=== PATIENT | female | born 1955 | race Caucasian/White ===

== ENCOUNTER → 2017-01-02 | Outpatient (REF) | payer BC ==
[2017-01-02 11:42] LABS: MEAN CORPUSCULAR HEMOGLOBIN 32.9 pg (27.0-33.0); MEAN CORPUSCULAR HGB CONC 33.8 g/dl (32.0-36.5); MEAN CORPUSCULAR VOLUME 97.4 fl (80.0-96.0); RED CELL DISTRIBUTION WIDTH 12.9 % (11.5-14.5); WHITE BLOOD COUNT 5.3 K/mm3 (4.0-10.0)
[2017-01-02 12:39] LABS: ALBUMIN 3.8 GM/DL (3.2-5.2); ALBUMIN/GLOBULIN RATIO 1.52 (1.00-1.93); ALKALINE PHOSPHATASE 49 U/L (45-117); ALT/SGPT 22 U/L (12-78); ANION GAP 7 MEQ/L (8-16); AST/SGOT 19 U/L (15-37); BILIRUBIN,TOTAL 0.4 MG/DL (0.2-1.0); BLOOD UREA NITROGEN 12 MG/DL (7-18); CALCIUM LEVEL 8.6 MG/DL (8.5-10.1); CARBON DIOXIDE LEVEL 30 MEQ/L (21-32); CHLORIDE LEVEL 104 MEQ/L (98-107); CHOLESTEROL LEVEL 193 MG/DL (<200); CREATININE FOR GFR 0.67 MG/DL (0.55-1.02); FERRITIN 22 NG/ML (8-252); GLOMERULAR FILTRATION RATE > 60.0 (>51); GLUCOSE, FASTING 79 MG/DL (70-105); POTASSIUM SERUM 4.2 MEQ/L (3.5-5.1); SODIUM LEVEL 141 MEQ/L (136-145); TOTAL PROTEIN 6.3 GM/DL (6.4-8.2); TRIGLYCERIDES LEVEL 57 MG/DL (<150)
== END ==
LOC: M SFHCCLAY 09:05
PROVIDERS: ATTEND Family Medicine
DX: E78.00 Pure hypercholesterolemia, unspecified (principal); E83.119 Hemochromatosis, unspecified

== ENCOUNTER → 2018-01-10 | Outpatient (REF) | payer BC ==
[2018-01-10 11:40] LABS: HEMATOCRIT 40.5 % (36.0-47.0); HEMOGLOBIN 13.9 g/dl (12.0-16.0); MEAN CORPUSCULAR HEMOGLOBIN 32.9 pg (27.0-33.0); MEAN CORPUSCULAR HGB CONC 34.3 g/dl (32.0-36.5); MEAN CORPUSCULAR VOLUME 95.7 fl (80.0-96.0); PLATELET COUNT, AUTOMATED 285 10^3/uL (150-450); RED BLOOD COUNT 4.23 10^6/uL (4.00-5.40); RED CELL DISTRIBUTION WIDTH 11.7 % (11.5-14.5); WHITE BLOOD COUNT 4.7 10^3/uL (4.0-10.0)
[2018-01-10 12:08] LABS: ALBUMIN 3.6 GM/DL (3.2-5.2); ALBUMIN/GLOBULIN RATIO 1.24 (1.00-1.93); ALKALINE PHOSPHATASE 48 U/L (45-117); ALT/SGPT 23 U/L (12-78); ANION GAP 3 MEQ/L (8-16); AST/SGOT 14 U/L (7-37); BILIRUBIN,TOTAL 0.4 MG/DL (0.2-1.0); BLOOD UREA NITROGEN 12 MG/DL (7-18); CALCIUM LEVEL 7.9 MG/DL (8.8-10.2); CARBON DIOXIDE LEVEL 31 MEQ/L (21-32); CHLORIDE LEVEL 108 MEQ/L (98-107); CHOLESTEROL LEVEL 190 MG/DL (<200); CHOLESTEROL RISK RATIO 2.835 (<5); CREATININE FOR GFR 0.73 MG/DL (0.55-1.30); FERRITIN 67 NG/ML (8-252); GLOMERULAR FILTRATION RATE > 60.0 (>45); GLUCOSE, FASTING 82 MG/DL (70-100); HDL CHOLESTEROL 67 MG/DL (>40); IRON (FE) 125 UG/DL (50-170); NON-HDL-C 123 MG/DL; POTASSIUM SERUM 4.5 MEQ/L (3.5-5.1); SODIUM LEVEL 142 MEQ/L (136-145); TOTAL PROTEIN 6.5 GM/DL (6.4-8.2); TRIGLYCERIDES LEVEL 65 MG/DL (<150)
== END ==
LOC: M SFHCCLAY 08:30
DX: E83.119 Hemochromatosis, unspecified (principal); E78.00 Pure hypercholesterolemia, unspecified
CPT/HCPCS: 83540

== ENCOUNTER → 2019-01-08 | Outpatient (REF) | payer BC ==
[2019-01-08 16:43] LABS: HEMATOCRIT 37.6 % (36.0-47.0); HEMOGLOBIN 12.9 g/dl (12.0-15.5); MEAN CORPUSCULAR HEMOGLOBIN 32.5 pg (27.0-33.0); MEAN CORPUSCULAR HGB CONC 34.3 g/dl (32.0-36.5); MEAN CORPUSCULAR VOLUME 94.7 fl (80.0-96.0); PLATELET COUNT, AUTOMATED 284 10^3/uL (150-450); RED BLOOD COUNT 3.97 10^6/uL (4.00-5.40)
[2019-01-08 16:47] LABS: ALBUMIN 3.8 GM/DL (3.2-5.2); ALT/SGPT 25 U/L (12-78); BILIRUBIN,TOTAL 0.4 MG/DL (0.2-1.0); BLOOD UREA NITROGEN 10 MG/DL (7-18); CALCIUM LEVEL 8.4 MG/DL (8.8-10.2); CARBON DIOXIDE LEVEL 28 MEQ/L (21-32); CHLORIDE LEVEL 105 MEQ/L (98-107); CHOLESTEROL LEVEL 197 MG/DL (<200); CHOLESTEROL RISK RATIO 2.373 (<5); CREATININE FOR GFR 0.74 MG/DL (0.55-1.30); FERRITIN 10 NG/ML (8-252); GLOMERULAR FILTRATION RATE > 60.0 (>45); GLUCOSE, FASTING 79 MG/DL (70-100); HDL CHOLESTEROL 83 MG/DL (>40); IRON (FE) 85 UG/DL (50-170); LDL CHOLESTEROL 105 MG/DL (<100); NON-HDL-C 114 MG/DL; POTASSIUM SERUM 4.2 MEQ/L (3.5-5.1); SODIUM LEVEL 141 MEQ/L (136-145); TOTAL PROTEIN 6.5 GM/DL (6.4-8.2); TRIGLYCERIDES LEVEL 45 MG/DL (<150)
== END ==
LOC: M SFHCCLAY 09:38
PROVIDERS: ATTEND Family Medicine
DX: E83.119 Hemochromatosis, unspecified (principal); E78.00 Pure hypercholesterolemia, unspecified

== ENCOUNTER → 2019-05-20 | Outpatient (REF) | payer BC | LOC: M SFHCPLAZ 18:27 | PROVIDERS: ATTEND Dermatology | DX: D23.9 Other benign neoplasm of skin, unspecified (principal); L85.9 Epidermal thickening, unspecified ==

== ENCOUNTER → 2020-01-20 | Outpatient (REF) | payer BC ==
[2020-01-20 12:40] LABS: ALBUMIN 3.7 GM/DL (3.2-5.2); ALT/SGPT 26 U/L (12-78); BILIRUBIN,TOTAL 0.5 MG/DL (0.2-1.0); BLOOD UREA NITROGEN 14 MG/DL (7-18); CALCIUM LEVEL 8.4 MG/DL (8.8-10.2); CARBON DIOXIDE LEVEL 31 MEQ/L (21-32); CHLORIDE LEVEL 105 MEQ/L (98-107); CHOLESTEROL LEVEL 200 MG/DL (<200); CHOLESTEROL RISK RATIO 2.409 (<5); CREATININE FOR GFR 0.77 MG/DL (0.55-1.30); FERRITIN 18 NG/ML (8-252); GLOMERULAR FILTRATION RATE > 60.0 (>45); GLUCOSE, FASTING 78 MG/DL (70-100); HDL CHOLESTEROL 83 MG/DL (>40); IRON (FE) 147 UG/DL (50-170); LDL CHOLESTEROL 103 MG/DL (<100); NON-HDL-C 117 MG/DL; PERCENT SATURATION 57.6 % (13.2-45.0); POTASSIUM SERUM 4.2 MEQ/L (3.5-5.1); SODIUM LEVEL 139 MEQ/L (136-145); TOTAL 25(OH) VITAMIN D 26.2 NG/ML (30.0-100.0); TOTAL IRON BINDING CAPACITY 255 UG/DL (250-450); TOTAL PROTEIN 6.6 GM/DL (6.4-8.2); TRIGLYCERIDES LEVEL 68 MG/DL (<150)
== END ==
LOC: M SFHCCLAY 09:05
PROVIDERS: ATTEND Family Medicine
DX: Z00.00 Encounter for general adult medical examination without abnormal findings (principal); E83.119 Hemochromatosis, unspecified; E78.00 Pure hypercholesterolemia, unspecified

== ENCOUNTER → 2020-05-25 | Outpatient (REF) | payer BC | LOC: M LAB REF 09:27 | PROVIDERS: ATTEND Dermatology | DX: L57.0 Actinic keratosis (principal) ==

== ENCOUNTER → 2021-01-17 | Outpatient (REF) | payer BC ==
[2021-01-17 11:34] LABS: HEMATOCRIT 39.1 % (36.0-47.0); HEMOGLOBIN 13.3 g/dl (12.0-15.5); MEAN CORPUSCULAR HEMOGLOBIN 33.7 pg (27.0-33.0); PLATELET COUNT, AUTOMATED 323 10^3/uL (150-450); RED BLOOD COUNT 3.95 10^6/uL (4.00-5.40); WHITE BLOOD COUNT 5.5 10^3/uL (4.0-10.0)
[2021-01-17 13:23] LABS: ALBUMIN 4.1 GM/DL (3.2-5.2); ALT/SGPT 19 U/L (12-78); BILIRUBIN,TOTAL 0.4 MG/DL (0.2-1.0); BLOOD UREA NITROGEN 13 MG/DL (7-18); CALCIUM LEVEL 8.7 MG/DL (8.8-10.2); CARBON DIOXIDE LEVEL 32 MEQ/L (21-32); CHLORIDE LEVEL 105 MEQ/L (98-107); CHOLESTEROL LEVEL 244 MG/DL (<200); CHOLESTEROL RISK RATIO 2.259 (<5); CREATININE FOR GFR 0.81 MG/DL (0.55-1.30); FERRITIN 8 NG/ML (8-252); GLOMERULAR FILTRATION RATE > 60.0 (>45); GLUCOSE, FASTING 84 MG/DL (70-100); HDL CHOLESTEROL 108 MG/DL (>40); IRON (FE) 66 UG/DL (50-170); LDL CHOLESTEROL 123 MG/DL (<100); NON-HDL-C 136 MG/DL; PERCENT SATURATION 21.7 % (13.2-45.0); POTASSIUM SERUM 4.3 MEQ/L (3.5-5.1); SODIUM LEVEL 140 MEQ/L (136-145); TOTAL IRON BINDING CAPACITY 304 UG/DL (250-450); TRIGLYCERIDES LEVEL 66 MG/DL (<150)
== END ==
LOC: M SFHCCLAY 09:35
PROVIDERS: ATTEND Family Medicine
DX: E83.119 Hemochromatosis, unspecified (principal); E78.00 Pure hypercholesterolemia, unspecified; Z00.00 Encounter for general adult medical examination without abnormal findings

== ENCOUNTER → 2022-01-23 | Outpatient (REF) | payer BC ==
[2022-01-23 16:06] LABS: HEMATOCRIT 38.9 % (36.0-47.0); HEMOGLOBIN 13.5 g/dl (12.0-15.5); MEAN CORPUSCULAR HGB CONC 34.7 g/dl (32.0-36.5); MEAN CORPUSCULAR VOLUME 95.1 fl (80.0-96.0); PLATELET COUNT, AUTOMATED 314 10^3/uL (150-450); RED BLOOD COUNT 4.09 10^6/uL (4.00-5.40); WHITE BLOOD COUNT 5.4 10^3/uL (4.0-10.0)
[2022-01-23 16:29] LABS: ALBUMIN 4.2 GM/DL (3.2-5.2); ALT/SGPT 25 U/L (12-78); BILIRUBIN,TOTAL 0.5 MG/DL (0.2-1.0); BLOOD UREA NITROGEN 13 MG/DL (7-18); CALCIUM LEVEL 9.1 MG/DL (8.8-10.2); CARBON DIOXIDE LEVEL 31 MEQ/L (21-32); CHLORIDE LEVEL 107 MEQ/L (98-107); CHOLESTEROL LEVEL 248 MG/DL (<200); CHOLESTEROL RISK RATIO 2.214 (<5); CREATININE FOR GFR 0.83 MG/DL (0.55-1.30); FERRITIN 9 NG/ML (8-252); GLOMERULAR FILTRATION RATE > 60.0 (>45); GLUCOSE, FASTING 93 MG/DL (70-100); HDL CHOLESTEROL 112 MG/DL (>40); IRON (FE) 63 UG/DL (50-170); LDL CHOLESTEROL 123 MG/DL (<100); NON-HDL-C 136 MG/DL; PERCENT SATURATION 21.6 % (13.2-45.0); POTASSIUM SERUM 4.3 MEQ/L (3.5-5.1); SODIUM LEVEL 141 MEQ/L (136-145); TOTAL IRON BINDING CAPACITY 292 UG/DL (250-450); TOTAL PROTEIN 7.1 GM/DL (6.4-8.2); TRIGLYCERIDES LEVEL 63 MG/DL (<150)
== END ==
LOC: M SFHCCLAY 11:18
PROVIDERS: ATTEND Family Medicine
DX: E83.119 Hemochromatosis, unspecified (principal); E78.00 Pure hypercholesterolemia, unspecified

== ENCOUNTER → 2023-03-27 | Outpatient (REF) | payer MEDICARE ==
[2023-03-27 12:00] LABS: HEMATOCRIT 42.2 % (36.0-47.0); HEMOGLOBIN 14.1 g/dl (12.0-15.5); MEAN CORPUSCULAR HEMOGLOBIN 32.2 pg (27.0-33.0); MEAN CORPUSCULAR HGB CONC 33.4 g/dl (32.0-36.5); MEAN CORPUSCULAR VOLUME 96.3 fl (80.0-96.0); PLATELET COUNT, AUTOMATED 270 10^3/uL (150-450); RED BLOOD COUNT 4.38 10^6/uL (4.00-5.40); WHITE BLOOD COUNT 6.1 10^3/uL (4.0-10.0)
[2023-03-27 12:24] LABS: IRON (FE) 111 UG/DL (50-170); PERCENT SATURATION 41.3 % (13.2-45.0); TOTAL IRON BINDING CAPACITY 269 UG/DL (250-425)
[2023-03-27 12:25] LABS: ALBUMIN 3.9 G/DL (3.2-5.2); ALKALINE PHOSPHATASE 48 U/L (46-116); ALT/SGPT 23 U/L (7.0-40); AST/SGOT 24 U/L (<34); BILIRUBIN,TOTAL 0.7 MG/DL (0.3-1.2); BLOOD UREA NITROGEN 13 MG/DL (9-23); CALCIUM LEVEL 8.9 MG/DL (8.3-10.6); CARBON DIOXIDE LEVEL 31 MMOL/L (20-31); CHLORIDE LEVEL 106 MMOL/L (98-107); CHOLESTEROL LEVEL 246 MG/DL (<200); CHOLESTEROL RISK RATIO 2.41 (<5); CREATININE FOR GFR 0.75 MG/DL (0.55-1.30); GLOMERULAR FILTRATION RATE > 60.0 (>45); GLUCOSE, FASTING 85 MG/DL (74-106); LDL CHOLESTEROL 131.8 MG/DL (<100); POTASSIUM SERUM 4.3 MMOL/L (3.5-5.1); SODIUM LEVEL 141 MMOL/L (136-145); TOTAL PROTEIN 6.6 G/DL (5.7-8.2); TRIGLYCERIDES LEVEL 61 MG/DL (<150)
[2023-03-27 12:26] LABS: FERRITIN 11.8 NG/ML (7.3-270.7)
== END ==
LOC: M SFHCCLAY 09:11
PROVIDERS: ATTEND Family Medicine
DX: E83.119 Hemochromatosis, unspecified (principal); E78.00 Pure hypercholesterolemia, unspecified

== ENCOUNTER → 2024-03-31 | Outpatient (REF) | payer MEDICARE ==
[2024-03-31 18:04] LABS: IRON (FE) 79 UG/DL (50-170); PERCENT SATURATION 31.1 % (13.2-45.0); TOTAL IRON BINDING CAPACITY 254 UG/DL (250-425)
[2024-03-31 18:05] LABS: ALBUMIN 3.9 G/DL (3.2-5.2); ALKALINE PHOSPHATASE 47 U/L (46-116); ALT/SGPT 25 U/L (7.0-40); AST/SGOT 18 U/L (<34); BILIRUBIN,TOTAL 0.6 MG/DL (0.3-1.2); BLOOD UREA NITROGEN 15 MG/DL (9-23); CALCIUM LEVEL 8.8 MG/DL (8.3-10.6); CARBON DIOXIDE LEVEL 28 MMOL/L (20-31); CHLORIDE LEVEL 105 MMOL/L (98-107); CHOLESTEROL LEVEL 254 MG/DL (<200); CHOLESTEROL RISK RATIO 2.43 (<5); CREATININE FOR GFR 0.78 MG/DL (0.55-1.30); GLOMERULAR FILTRATION RATE > 60.0 (>45); GLUCOSE, FASTING 93 MG/DL (74-106); HDL CHOLESTEROL 104.1 MG/DL (>40); HEMOGLOBIN 12.9 g/dl (12.0-15.5); LDL CHOLESTEROL 138.1 MG/DL (<100); MEAN CORPUSCULAR HEMOGLOBIN 31.4 pg (27.0-33.0); MEAN CORPUSCULAR HGB CONC 33.9 g/dl (32.0-36.5); MEAN CORPUSCULAR VOLUME 92.5 fl (80.0-96.0); NON-HDL-C 149.9 MG/DL; PLATELET COUNT, AUTOMATED 277 10^3/uL (150-450); POTASSIUM SERUM 4.3 MMOL/L (3.5-5.1); RED BLOOD COUNT 4.11 10^6/uL (4.00-5.40); SODIUM LEVEL 139 MMOL/L (136-145); TOTAL PROTEIN 6.4 G/DL (5.7-8.2); TRIGLYCERIDES LEVEL 59 MG/DL (<150); WHITE BLOOD COUNT 5.2 10^3/uL (4.0-10.0)
[2024-03-31 18:07] LABS: FERRITIN 14.2 NG/ML (7.3-270.7)
== END ==
LOC: M SFHCCLAY 09:28
PROVIDERS: ATTEND Family Medicine
DX: E83.119 Hemochromatosis, unspecified (principal); E78.00 Pure hypercholesterolemia, unspecified

== ENCOUNTER → 2025-04-01 | Outpatient (REF) | payer MEDICARE ==
[2025-04-01 12:36] LABS: FERRITIN 33.2 NG/ML (7.3-270.7)
[2025-04-01 12:39] LABS: ALBUMIN 3.8 G/DL (3.2-5.2); BILIRUBIN,TOTAL 0.5 MG/DL (0.3-1.2); CHOLESTEROL RISK RATIO 2.55 (<5); CREATININE FOR GFR 0.83 MG/DL (0.55-1.30); GLOMERULAR FILTRATION RATE 76.7 (>45); HDL CHOLESTEROL 88.6 MG/DL (>40); LDL CHOLESTEROL 127.4 MG/DL (<100); NON-HDL-C 137.4 MG/DL; PERCENT SATURATION 47.9 % (13.2-45.0); POTASSIUM SERUM 4.2 MMOL/L (3.5-5.1); TOTAL PROTEIN 6.5 G/DL (5.7-8.2)
[2025-04-01 12:50] LABS: HEMOGLOBIN A1c 5.5 % (4.0-6.0)
[2025-04-01 13:11] LABS: HEMATOCRIT 41.7 % (36.0-47.0); HEMOGLOBIN 14.2 g/dl (12.0-15.5); MEAN CORPUSCULAR HEMOGLOBIN 32.2 pg (27.0-33.0); MEAN CORPUSCULAR HGB CONC 34.1 g/dl (32.0-36.5); MEAN CORPUSCULAR VOLUME 94.6 fl (80.0-96.0); PLATELET COUNT, AUTOMATED 218 10^3/uL (150-450); RED BLOOD COUNT 4.41 10^6/uL (4.00-5.40)
== END ==
LOC: M SFHCCLAY 09:03
PROVIDERS: ATTEND Physician Assistant
DX: Z00.00 Encounter for general adult medical examination without abnormal findings (principal); E83.119 Hemochromatosis, unspecified; L71.9 Rosacea, unspecified; E78.00 Pure hypercholesterolemia, unspecified